=== PATIENT | male | born 1960 | race Caucasian/White ===

== ENCOUNTER 2022-11-07 10:09 | Outpatient (OUT) | payer BC, SELFPAY ==
--- NOTE | 2022-11-07 10:18 | ECG_ITS ---
[facility] Test Date: 2022-11-07 Pat Name: Dorian Amador Department: Room: - Gender: Male [employer] Clerk: : [id number] Requested By: Order Number: [id number] Reading MD: ELANA NEWMAN Measurements Intervals [place] Rate: 58 P: 37 HI: 182 QRS: -17 QRSD: 107 T: 10 QT: 392 QTc: 388 Interpretive Statements SINUS BRADYCARDIA No previous ECG available for comparison Electronically Signed On 11-08-2022 6:54:19 EDT by ELANA NEWMAN
--- NOTE | 2022-11-07 10:56 | P.GSHP_ITS ---
History of Present Illness History of Present Illness Chief complaint: pat appt Narrative: Patient presents for preadmission testing. Please see HPI from Dr. Bangura dated 10/27/2022. Review of Systems ROS Narrative Please see ROS from Dr. Bangura dated 10/27/2022. [facility] Medical History (Updated 11/07/22 @ 10:37 by Yarely Nation NP) Surgical History (Updated 11/07/22 @ 10:37 by Yarely Nation NP) Family History (Updated 11/07/22 @ 10:37 by Yarely Nation NP) Other Family history of COPD (chronic obstructive pulmonary disease) Family history of prostate cancer Social History (Updated 11/07/22 @ 10:33 by Yarely Nation NP) Within the past year, how often did you have a drink containing alcohol: never Score interpretation: A score less than 4 is consistent with normal alcohol consumption. 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 Highest level of school completed/degree received: Associate degree: occupational, technical, vocational program Meds Home Medications and Allergies Home Medications Medication Instructions Recorded Confirmed Type tadalafil 10 mg tablet (Cialis) 10 mg PO DAILY PRN sexual activity 11/07/22 11/07/22 History tamsulosin 0.4 mg capsule (Flomax) 0.4 mg PO DAILY 11/07/22 11/07/22 History Allergies Allergy/AdvReac Type Severity Reaction Status Date / Time No Known Drug Allergies Allergy Verified 11/07/22 10:29 Exam Narrative Exam Narrative: Constitutional: Awake, alert, comfortable, well-appearing, nontoxic, interactive, vital signs as charted Head: Normocephalic atraumatic Neck: Supple, normal appearance, normal range of motion, no meningeal signs, no lymphadenopathy Respiratory: No respiratory distress, breath sounds clear Cardiovascular: Regular rate and rhythm, strong and regular heart tones Abdomen: Nontender, normal bowel sounds, soft, no CVA tenderness Musculoskeletal: Normal gait, no swelling or edema Skin: No rashes or induration, no lesions, only visible skin inspected Neuro: No neurological deficits, normal sensation Psychiatric: Oriented ?3, normal affect Assessment and Plan Assessment and Plan (1) Peyronie's disease: Plan Penile plication scheduled with Dr. Bangura 11/16/2022.
[2022-11-07 11:31] LABS: Basophils Percent Auto 0.7 % (0.2-2.0); Eosinophils Absolute Auto 0.1 10^3/uL (0.0-0.7); Eosinophils Percent Auto 2.4 % (0.9-7.0); Hemoglobin 15.3 g/dL (14.0-18.0); Immature Granulocytes Abs Auto 0.05 10^3/uL (0.00-0.03); Immature Granulocytes Pct Auto 0.9 % (0.0-0.5); Lymphocytes Absolute Auto 1.2 10^3/uL (1.2-3.8); Lymphocytes Percent Auto 21.4 % (20.5-60.0); Mean Corpuscular Hemoglobin 30.5 pg (25.9-34.0); Mean Corpuscular Volume 89.8 fL (80.0-94.0); Mean Platelet Volume 9.7 fL (9.5-13.5); Monocytes Absolute Auto 0.6 10^3/uL (0.3-0.8); Neutrophils Absolute Auto 3.5 10^3/uL (1.4-6.5); Neutrophils Percent Auto 63.6 % (43.0-75.0); Platelet Count 334 10^3/uL (150-450); Red Blood Count 5.01 10^6/uL (4.70-6.10); Red Cell Distribution Width 12.2 % (11.0-15.0); White Blood Count 5.4 10^3/uL (4.0-11.0)
[2022-11-07 11:56] LABS: INR 0.97; Partial Thromboplastin Time 28.2 sec (22.3-36.2); Prothrombin Time 10.3 sec (9.0-11.6)
[2022-11-07 13:18] LABS: Anion Gap 13.2; BUN Creatinine Ratio 12.1; Calcium 9.8 mg/dL (8.5-10.1); Carbon Dioxide 28.1 mmol/L (21.0-32.0); Chloride 104 mmol/L (98-107); Estimated GFR (African America >60 (>=60); Estimated GFR (Non-African Ame >60 (>=60); Glucose 101 mg/dL (74-106); Potassium 4.3 mmol/L (3.5-5.1); Sodium 141 mmol/L (136-145)
== END 2022-11-07 10:10 ==
LOC: PST 10:14
PROVIDERS: Urology; PCP Family Medicine
DX: Z01.810 Encounter for preprocedural cardiovascular examination (principal); Z01.812 Encounter for preprocedural laboratory examination; N48.6 Induration penis plastica
CPT/HCPCS: 36415; 80048; 85025; 85610; 85730; 93005; G0463

== ENCOUNTER 2022-11-16 11:21 | Day surgery (SDC) | payer BC, SELFPAY ==
[2022-11-07 10:34] VITALS: PULSE 76; RESP 16; TEMP 36.5; O2SAT 96; BMI 30.7
[2022-11-16] VITALS (14 sets, daily range): BP systolic 128–153; BP diastolic 60–79; PULSE 61–74; RESP 13–18; TEMP 36.6–36.8; O2SAT 93–98; BMI 29.7
[2022-11-16] MEDS: LACTATED RINGER'S SOLUTION 1,000 ML 50 ML IV ×3 (12:06→16:30)
[2022-11-16] MEDS: CEFAZOLIN SODIUM/DEXTROSE,ISO 2 GM/50 ML PIGGYBACK IV (13:04)
[2022-11-16] MEDS: HYDROMORPHONE HCL 0.5 MG/0.5 ML SYRINGE IV (16:06)
[2022-11-16] MEDS: BUPIVACAINE HCL 0.5% PF 50 MG/10 ML VIAL INJ (16:11)
--- NOTE | 2022-11-16 17:42 | PM.URSON ---
Urology Surgery Operative Note Operative Note Procedure Date: 11/16/22 Pre-op Diagnosis: Peyronie's disease Post-op Diagnosis: Peyronie's disease Primary Surgeon: Marlena Bangura Procedure performed: Penile plication Anesthesiologist: Gavin Bates Time Out Performed: yes Findings: 60-65 degree dorsal curvature at the distal-mid shaft and palpable dorsal plaque. Total of 12 sutures placed on bilateral ventral corpora for penile straightening to nearly straight-5 degrees. Penis was detumescent by the end of the case. Estimated blood loss (mL): 3 DVT Prophylaxis: SCD Post Operative care instructions: Follow up in 5 weeks for post op check, no intercourse until night prior ASA Class Wound Class: clean Attending Doc Confirm Attending Attestation: Yes Procedure Note Procedure: Indication: 62 year old male with history of Peyronie's disease since 04/2021 and 60 degree dorsal curvature with palpable plaque, limiting his ability to have intercourse. Now in chronic phase. Mild erectile dysfunction since having curvature. After discussion of risks/benefits of management options, he elected to proceed with penile plication. Risks were discussed including but not limited to bleeding, pain, infection, damage to surrounding structures, palpable sutures, penile shortening, residual curvature, erectile dysfunction, sensation changes, and need for additional procedures. Procedure in detail: After informed consent was obtained, the patient was brought to the operating room and transferred onto the operating table in supine position. Sequential compression devices were placed on bilateral lower extremities. The patient received the appropriate dose of preoperative IV antibiotics (2g Ancef) and general anesthesia LMA was induced. Intracavernous injection of 20 mcg alprostadil was administered. The appropriate pressure points were padded, prepped, and draped in the usual sterile fashion for this procedure. An operative safety timeout was performed confirming the patient's identity, procedure, and safety checks, and all present agreed to proceed. The penis was gripped at the base to evaluate the extent, direction and location of penile deformity. There was a 60-65 degree dorsal curvature at the mid-distal shaft and palpable dorsal plaque. A 14Fr dale catheter was placed without difficulty, bladder drained and clamped with hemostat to assist with urethral identification. A 2 cm longitudinal incision was made along the median raphe on the proximal penile shaft with a scalpel. Dissection was carried through dartos and Burgos's fascia using blunt, sharp and select electrocautery. Once the tunica albuginea was exposed on bilateral corpora ventrally, the tunica albuginea was repeatedly corrected with short plication 2-0 non-absorbable Ethibond braided sutures in an inverted mattress fashion, spanning 15-20 mm. This started proximal to the area of greatest convexity, travelling distally, re-examining the penis after each suture until satisfactory correction of curvature. A total of 12 plication sutures were placed, 6 on each side. Care was taken to avoid the urethra. After achieving symmetric, satisfactory correction of near 0-5 degrees, the wound was closed in 3 layers with 3-0 monocryl in a running fashion for Burgos's fascia and then Dartos. Skin and underlying Dartos remained mobile on the shaft. The skin was closed in a subcuticular fashion with 4-0 monocryl, followed by skin glue, Telfa, Shahrzad wrap and coban wrapped distal to proximally on the shaft. The bladder was drained and catheter removed without evidence of hematuria. 10 ml of 0.25% marcaine plain was delivered for dorsal penile block. Supportive underwear applied. The patient tolerated the procedure well without complication. The patient was awakened from anesthesia and sent to PACU in stable condition.
== END 2022-11-16 18:13 | disposition home or self-care (01) ==
PROVIDERS: PCP Family Medicine; Visit Provider Urology
PROC: (CPT 54110; principal; 2022-11-16 12:30)
DX: N48.6 Induration penis plastica (principal); Z87.891 Personal history of nicotine dependence; N40.1 Benign prostatic hyperplasia with lower urinary tract symptoms; N39.43 Post-void dribbling; Z80.42 Family history of malignant neoplasm of prostate; R39.14 Feeling of incomplete bladder emptying; N52.9 Male erectile dysfunction, unspecified; R35.0 Frequency of micturition
CPT/HCPCS: 54110; 36415; J0270; J1170; J2704